=== PATIENT | female | born 1965 | race Caucasian/White ===

== ENCOUNTER → 2017-01-20 | Outpatient (CLI) | payer OTHER | LOC: COL.PUL 01-14 11:20 | DX: Z02.71 Encounter for disability determination (principal); I51.7 Cardiomegaly; F17.200 Nicotine dependence, unspecified, uncomplicated ==

== ENCOUNTER → 2017-09-27 | Outpatient (CLI) | payer MEDICAID | LOC: MC.RAD 10:00 | DX: N63.12 Unspecified lump in the right breast, upper inner quadrant (principal) ==

== ENCOUNTER 2017-11-01 10:35 | Day surgery (SDC) | payer MEDICAID ==
[~2017-11-01] VITALS: Ht 165.1 cm; Wt 84.1 kg
[2017-11-01] VITALS (10 sets, daily range): BP systolic 126–163; BP diastolic 53–88; PULSE 70–86; TEMP 97.8–98.1
[2017-11-01] MEDS ORDERED: OXYCONTIN30 MG PO (11:01)
[2017-11-01] MEDS ORDERED: KLONOPIN 1MG1 MG PO (11:02)
[2017-11-01] MEDS ORDERED: PERCOCET 325 MG1 TAB PO (11:03)
[2017-11-01] MEDS ORDERED: ZITHROMAX 250M250 MG PO (11:03)
[2017-11-01] MEDS ORDERED: NICODERM C21 MG/PATC TD (11:04)
[2017-11-01] MEDS ORDERED: DEXILANT60 MG PO (11:05)
[2017-11-01] MEDS ORDERED: ZANTAC 300300 MG PO (11:05)
[2017-11-01] MEDS ORDERED: PLAVIX 75MG TAB75 MG PO (11:05)
[2017-11-01] MEDS ORDERED: VITAMIN D 50,1.25 MG PO (11:06)
[2017-11-01] MEDS ORDERED: PROAIR HFA0.09 MG/AC IH (11:06)
[2017-11-01] MEDS ORDERED: LASIX 80MG TABL80 MG PO (11:07)
[2017-11-01] MEDS ORDERED: CELEXA40 MG PO (11:08)
[2017-11-01] MEDS ORDERED: CRESTOR40 MG PO (11:08)
[2017-11-01] MEDS ORDERED: KLOR-CON SPRIN10 MEQ PO (11:09)
[2017-11-01] MEDS ORDERED: NITROSTAT0.4 MG/TAB SL (11:09)
[2017-11-02] VITALS: BP 126/61; PULSE 86; TEMP 98.4
[2017-11-02 04:00] VITALS: BP 115/62; PULSE 70; TEMP 97.6
[2017-11-02 08:00] VITALS: BP 128/61; PULSE 62; TEMP 97.7
[2017-11-02 12:25] VITALS: BP 119/67; PULSE 61; TEMP 97.8
== END 2017-11-02 12:45 | disposition home or self-care (01) ==
LOC: SURG 10:35 → SDCO 10:35 → SURG 17:30 → SDCO 11-02 12:45
DX: K80.10 Calculus of gallbladder with chronic cholecystitis without obstruction (principal); I25.2 Old myocardial infarction; I11.0 Hypertensive heart disease with heart failure; I50.9 Heart failure, unspecified; I25.10 Atherosclerotic heart disease of native coronary artery without angina pectoris; Z95.5 Presence of coronary angioplasty implant and graft; E78.00 Pure hypercholesterolemia, unspecified; F17.210 Nicotine dependence, cigarettes, uncomplicated; Z79.01 Long term (current) use of anticoagulants; M79.7 Fibromyalgia; Z87.19 Personal history of other diseases of the digestive system; G89.29 Other chronic pain; M54.9 Dorsalgia, unspecified; Z79.82 Long term (current) use of aspirin; Z79.899 Other long term (current) drug therapy; Z85.41 Personal history of malignant neoplasm of cervix uteri
CPT/HCPCS: OP; J0690; J1100; J1885; J2175; J2370; J2405; J2704; J2710; J2765; J3010; J7030; J7120